=== PATIENT | female | born 1990 | race Asian ===

== ENCOUNTER 2023-07-11 10:24 | Outpatient (CLI) | payer MEDICAID, SELFPAY ==
[2023-07-11 10:48] LABS: Basophils Percent Auto 0.4 % (0.2-1.2); Eosinophils Absolute Auto 0.1 K/mm3 (0-0.3); Eosinophils Percent Auto 1.1 % (0-4.4); Hematocrit 35.6 % (37.0-47.0); Hemoglobin 12.4 g/dL (12.0-15.0); Immature Granulocyte Absolute 0.05 K/mm3 (0.00-0.031); Immature Granulocyte Percent A 0.5 % (0-0.5); Lymphocytes Absolute Auto 2.24 K/mm3 (0.9-3.2); Lymphocytes Percent Auto 20.9 % (18.3-44.2); Mean Corpuscular HGB Conc 34.8 g/dl (32-36); Mean Corpuscular Hemoglobin 30.5 pg (26-34); Mean Corpuscular Volume 87.5 fl (80-100); Mean Platelet Volume 10.1 fl (7.4-10.4); Monocytes Absolute Auto 0.6 K/mm3 (0.1-0.6); Monocytes Percent Auto 5.1 % (2.6-8.5); Neutrophils Absolute Auto 7.7 K/mm3 (1.3-6.7); Platelet Count Result 199 k/mm3 (150-375); Red Blood Count 4.07 M/mm3 (4.2-5.4); Red Cell Distribution Width 13.4 % (11.5-14.5); White Blood Count 10.7 K/mm3 (4.5-10.0)
[2023-07-11 11:38] LABS: HIV 1/2 Ab P24 Ag Result Negative (Negative)
[2023-07-11 11:54] LABS: Hepatitis B Surface Antigen Negative (Negative); Rubella IgG Antibody 8.7 IU/ML
[2023-07-13 12:30] LABS: Rapid Plasma Reagin Non-Reactive (NonReactive)
== END 2023-07-11 10:25 | disposition home or self-care (01) ==
PROVIDERS: PCP Student in an Organized Health Care Education/Training Program; Visit Provider Student in an Organized Health Care Education/Training Program
DX: N94.89 Other specified conditions associated with female genital organs and menstrual cycle (principal)
CPT/HCPCS: 36415; 84702; 85025; 86592; 86644; 86703; 86747; 86762; 86787; 86850; 86900; 86901; 87086; 87340; G0432

== ENCOUNTER 2023-10-04 10:00 | Outpatient (CLI) | payer OTHER, SELFPAY ==
--- NOTE | ~2023-10-04 | US_ITS ---
EXAMINATION: US OB /maternal detail DATE: 10/04/2023 11:10 INDICATION: Encounter for supervision of normal . TECHNIQUE: Real-time ultrasound of the pelvis was performed. COMPARISON: None. FINDINGS: There is a single living fetus in breech presentation. The placenta is anterior. The cervical length is 3.4 cm on transabdominal images, which is normal. heart rate is 149 beats per minute (bpm). The amniotic fluid index is 12.1 cm, which is normal. The following biometric data were obtained: Biparietal diameter (BPD): 6.0 cm; head circumference (HC): 21.6 cm; abdominal circumference (AC): 20 .0 cm; femur length (FL): 4.4 cm. These measurements are concordant. Estimated weight is 697 g +/- 105 g, which correlates with the 55th percentile when 01/23/24 is used as estimated date of delivery. As single measurements, these parameters are each equal to the following estimated gestational ages: BPD: 24 weeks 3 days. HC: 23 weeks 5 days. AC: 24 weeks 4 days. FL: 24 weeks 3 days. estimated gestational age based solely on measurements from this exam is 24 weeks 2 days +/- 1 weeks 5 days. The cerebral ventricles, cerebellum, cisterna magna, lip, and visualized portions of the spine are no rmal. The heart is normal. The diaphragm, stomach, kidneys, and bladder are normal. There are two umb ilical arteries to yield a 3-vessel cord. The cord insertion is normal. IMPRESSION: 1. Single living fetus in breech presentation. 2. Estimated weight is 697 g +/- 105 g, which correlates with the 55th percentile when 4 is used as estimated date of delivery. 3. Normal anatomic survey. Reviewed, dictated and finalized at location A. IMPRESSION: 1. Single living fetus in breech presentation. 2. Estimated weight is 697 g +/- 105 g, which correlates with the 55th p ercentile when 01/23/24 is used as estimated date of delivery. 3. Normal anatomic survey.
== END 2023-10-04 10:01 | disposition home or self-care (01) ==
LOC: ANHIMG 10:02
PROVIDERS: PCP Student in an Organized Health Care Education/Training Program; Visit Provider Student in an Organized Health Care Education/Training Program
DX: Z34.92 Encounter for supervision of normal pregnancy, unspecified, second trimester (principal); Z3A.24 24 weeks gestation of pregnancy
CPT/HCPCS: 76805

== ENCOUNTER 2023-11-02 09:56 | Outpatient (CLI) | payer OTHER, SELFPAY ==
[2023-11-02 11:39] LABS: Glucose 1 Hour PP 50gm Dose 146 mg/dL
[2023-11-02 11:45] LABS: Hematocrit 33.7 % (37.0-47.0); Hemoglobin 11.5 g/dL (12.0-15.0); Mean Corpuscular HGB Conc 34.1 g/dl (32-36); Mean Corpuscular Hemoglobin 31.3 pg (26-34); Mean Corpuscular Volume 91.6 fl (80-100); Mean Platelet Volume 11.1 fl (7.4-10.4); Platelet Count Result 211 k/mm3 (150-375); Red Blood Count 3.68 M/mm3 (4.2-5.4); Red Cell Distribution Width 13.2 % (11.5-14.5); White Blood Count 12.2 K/mm3 (4.5-10.0)
[2023-11-02 12:17] LABS: HIV 1/2 Ab P24 Ag Result Negative (Negative)
[2023-11-03 10:49] LABS: Rapid Plasma Reagin Non-Reactive (NonReactive)
== END 2023-11-02 09:57 | disposition home or self-care (01) ==
LOC: ANHLAB 09:56
PROVIDERS: PCP Student in an Organized Health Care Education/Training Program; Visit Provider Student in an Organized Health Care Education/Training Program
DX: Z34.90 Encounter for supervision of normal pregnancy, unspecified, unspecified trimester (principal)
CPT/HCPCS: 36415; 82947; 85027; 86592; 86703; G0432

== ENCOUNTER 2023-11-10 08:04 | Outpatient (CLI) | payer OTHER, SELFPAY ==
[2023-11-10 08:28] LABS: Glucose Fasting Gestational 76 mg/dL (>/=95)
[2023-11-10 09:58] LABS: Glucose 1 Hour Gest 148 mg/dL (>/=180)
[2023-11-10 10:53] LABS: Glucose 2 Hour Gest 119 mg/dL (>/= 155)
[2023-11-10 11:37] LABS: Glucose 3 Hour Gest 111 mg/dL (>/=140)
== END 2023-11-10 08:05 | disposition home or self-care (01) ==
LOC: ANHLAB 08:06
PROVIDERS: Visit Provider Student in an Organized Health Care Education/Training Program
DX: Z34.90 Encounter for supervision of normal pregnancy, unspecified, unspecified trimester (principal); Z3A.00 Weeks of gestation of pregnancy not specified
CPT/HCPCS: 36415; 82951; 82952

== ENCOUNTER 2024-01-16 08:55 | Outpatient (CLI) | payer OTHER, SELFPAY ==
[2024-01-16 09:16] LABS: Hematocrit 36.3 % (37.0-47.0); Hemoglobin 12.1 g/dL (12.0-15.0); Mean Corpuscular HGB Conc 33.3 g/dl (32-36); Mean Corpuscular Hemoglobin 29.7 pg (26-34); Mean Corpuscular Volume 89.2 fl (80-100); Mean Platelet Volume 10.7 fl (7.4-10.4); Platelet Count Result 188 k/mm3 (150-375); Red Blood Count 4.07 M/mm3 (4.2-5.4); Red Cell Distribution Width 14.3 % (11.5-14.5); White Blood Count 10.7 K/mm3 (4.5-10.0)
[2024-01-16 10:16] LABS: HIV 1/2 Ab P24 Ag Result Negative (Negative)
[2024-01-16 17:18] LABS: Rapid Plasma Reagin Non-Reactive (NonReactive)
== END 2024-01-16 08:56 | disposition home or self-care (01) ==
LOC: ANHLAB 08:57
PROVIDERS: Visit Provider Student in an Organized Health Care Education/Training Program
DX: Z01.818 Encounter for other preprocedural examination (principal)
CPT/HCPCS: 36415; 85027; 86592; 86703; 86850; 86900; 86901; G0432

== ENCOUNTER 2024-01-17 05:14 | Inpatient (IN) | payer OTHER, SELFPAY ==
--- NOTE | 2024-01-16 16:16 | PM.IMHP ---
H&P: HPI History of Present Illness Date/Time: 01/16/24 16:16 Chief Complaint: intrauterine at term prior advanced maternal age desires permanent sterilization Narrative: 33 yo G3Pw who presents for repeat . Pt also desires permanent sterilization at the time of . Review of Systems Cardiovascular: Cardiovascular: Denies chest pain, Denies leg edema, Denies palpitations, Denies dyspnea and Denies dyspnea on exertion Respiratory: Respiratory: Denies cough, Denies dyspnea and Denies dyspnea on exertion Gastrointestinal: Gastrointestinal: Denies abdominal pain, Denies constipation, Denies diarrhea, Denies nausea and Denies vomiting Genitourinary: Genitourinary: Denies hematuria, Denies urinary frequency, Denies dysuria, Denies pelvic pain, Denies urinary incontinence and Denies vaginal discharge Neurologic: Reports system reviewed and no additional complaints, except as documented Psychiatric: Psychiatric: Reports no additional psychiatric complaints Endocrine: Endocrine: Denies palpitations PMFSH Past Medical History Medical History Suppression of menses Surgical History Surgical History History of delivery 1 Family History Family History Grandparent Diabetes mellitus Social History Social History Smoking status: Never smoker Alcohol intake: former Substance use: never Do You Feel Safe in your Home?: Yes Lack of Transportation: No Lack of Food: Never True Current Housing: I Have Housing Concerned About Future Housing: No Difficulty Paying Gas/Electric Bills: No Difficulty Paying for Meds: No Currently Unemployed: No Education: High School Diploma/GED Difficulty w/ Childcare or Family Care: No Living arrangements: with family Gender identity (if verbalized by the patient): Female Sexual Orientation (if Verbalized by the Patient): Straight or Heterosexual Spiritual care concerns: No Meds Home Medications and Allergies Home Medications Medication Instructions Recorded Confirmed Type ondansetron HCl 4 mg tablet 4 mg PO Q6H PRN nausea and 07/12/23 01/11/24 Rx vomiting #30 tabs aspirin 81 mg capsule 162 mg PO DAILY #60 caps 09/02/23 01/11/24 Rx vits no.126-ferrous fum 1 tablet PO DAILY 09/02/23 01/11/24 History 28 mg iron-folic acid 800 mcg tablet (Classic ) Allergies Allergy/AdvReac Type Severity Reaction Status Date / Time No Known Allergies Allergy Verified 01/11/24 10:02 Exam Const: General: no acute distress Eyes: EOM: EOMs intact bilaterally Neck: Neck: supple Thyroid: thyroid normal Chest: Breast/axilla inspection: normal inspection of the breasts Breast/axilla palpation: normal palpation of the breasts, normal palpation of the axillae and no axillary lymphadenopathy Resp: Effort & Inspection: normal respiratory effort Auscultation: clear to auscultation bilaterally Cardio: Rate: regular rate Rhythm: regular rhythm GI: Inspection: non-distended and other (Gravid) GI Palp: Yes Soft to palpation, No Tenderness to palpation present (GI) and No Guarding due to palpation present (GI) Auscultation: normal bowel sounds : Speculum Exam - Vagina: No vaginal bleeding OB/external & speculum: external exam normal; No vaginal bleeding Skin: General skin exam: normal color and no rashes or lesions noted Neuro: Cognition (Neuro): normal cognition Speech: normal speech Extrem: General: normal to inspection Psych: Mental Status: mental status grossly normal Affect: normal affect Assessment and Plan Assessment and plan (1) : Code(s): Z34.90 - Encounter for supervision of normal , unspecified, unspecified trimester Status: Acute Assessment and Plan: - AMA; NIPT LR Male - H/o - repeat at 39w - H/o GHTN- has been on low dose aspirin uncomplicated thus far plan for repeat risks, benefits, alternatives discussed (2) History of delivery: Code(s): Z98.891 - History of uterine scar from previous surgery Status: Acute (3) Encounter for sterilization: Code(s): Z30.2 - Encounter for sterilization Status: Acute Assessment and Plan: plan for bilateral salpingectomy for tubal ligation at the time of risks, benefits, alternatives discussed
[2024-01-17] VITALS (66 sets, daily range): BP systolic 94–140; BP diastolic 38–94; PULSE 51–139; RESP 12–18; TEMP 36.3–36.9; O2SAT 97–100; BMI 28.9; BMI 29.5
[2024-01-17] MEDS: LACTATED RINGERS 1,000 ML 125 ML IV CONT ×2 (05:42→06:29)
[2024-01-17] MEDS: ACETAMINOPHEN 500 MG TABLET 1000 MG PO (05:43)
--- NOTE | 2024-01-17 06:20 | LDADM ---
This patient, Henry Bashir, was admitted to Labor/Delivery/Recovery 120 on 01/17/24 at 05:14. Plans for labor, pain management and were discussed with patient. Patient/family oriented to hospital policies and general routines including ID bracelet, bed and alarms, visiting hours, pain management, procedures, bathroom and other care routines, personal items, smoking policy, room service/diet and guest tray routines, security routines, and visiting hours. Patient/Family are encouraged to report perceived risks to care and to ask questions if they do not understand what they are told or what they should do. See OBIX for further documentation.
[2024-01-17] MEDS: ONDANSETRON INJ 4 MG/2 ML VIAL IV PUSH (06:30)
[2024-01-17] MEDS: ceFAZolin 2 GM/D5W 50 ML 2 GM/50 ML BAG IVPB (06:50)
[2024-01-17] MEDS: FAMOTIDINE 20 MG/2 ML VIAL IV PUSH (06:52)
--- NOTE | 2024-01-17 07:13 | WPDHPUPDATE1 ---
History and Physical Update Update Date/Time: 01/17/24 07:13 History and Physical has been reviewed, including an updated exam of the patient. There are NO changes in the patient's condition. Risks, benefits, and alternatives have been discussed and questions answered. Patient agrees to proceed with procedure.
--- NOTE | 2024-01-17 07:16 | WPDHPUPDATE1 ---
History and Physical Update Update Date/Time: 01/17/24 07:16 History and Physical has been reviewed, including an updated exam of the patient. There are NO changes in the patient's condition. Risks, benefits, and alternatives have been discussed and questions answered. Patient agrees to proceed with procedure.
--- NOTE | 2024-01-17 07:20 | P.PNAN_ITS ---
Anes - Initial Pre Proc Eval Procedure: Operation Date: 01/17/24 07:30 Proposed Procedures p Repeat Section with Tubal Ligation - Jaskaran Forbes MD Date/Time: 01/17/24 07:20 Surgeon: Jaskaran Forbes MD Pre Op Diagnosis: C/S Patient Data Age: 34 Gender: F Height: 1.5 m Weight: 66.36 kg Last Vital Signs Pulse 77 01/17/24 06:30 BP 129/83 01/17/24 06:30 Pulse Ox 99 01/17/24 06:40 O2 Del Method Room Air 01/17/24 05:14 Allergies Allergy/AdvReac Type Severity Reaction Status Date / Time No Known Allergies Allergy Verified 01/11/24 10:02 Home Medications Medication Instructions Recorded Confirmed Type ondansetron HCl 4 mg tablet 4 mg PO Q6H PRN nausea and 07/12/23 01/11/24 Rx vomiting #30 tabs aspirin 81 mg capsule 162 mg PO DAILY #60 caps 09/02/23 01/11/24 Rx vits no.126-ferrous fum 1 tablet PO DAILY 09/02/23 01/11/24 History 28 mg iron-folic acid 800 mcg tablet (Classic ) Patient hx anesthesia problems: none Family hx anesthesia problems: none Results Review: All pre-operative results and documents have been reviewed as part of the pre- operative evaluation. [facility] Past Medical History Medical History Suppression of menses Surgical History Surgical History History of delivery 1 Family History Family History Grandparent Diabetes mellitus Social History Social History Smoking status: Never smoker Second hand tobacco smoke exposure: Yes Alcohol intake: former Substance use: never Do You Feel Safe in your Home?: Yes Lack of Transportation: No Lack of Food: Never True Current Housing: I Have Housing Concerned About Future Housing: No Difficulty Paying Gas/Electric Bills: No Difficulty Paying for Meds: No Currently Unemployed: No Education: High School Diploma/GED Difficulty w/ Childcare or Family Care: No Living arrangements: with family Gender identity (if verbalized by the patient): Female Sexual Orientation (if Verbalized by the Patient): Straight or Heterosexual Spiritual care concerns: No Anes - Eval Final PreProcedure Day of Procedure 01/17/24 07:20 Patient weight: overweight Heart: regular rate and rhythm Lungs: clear to auscultation Airway: Mallampati scale class II Neurological: alert and oriented Last oral intake: >/= 8 hours ASA classification: II Emergent: no Anesthetic plan: proceed Anesthesia type and monitoring: regional spinal and standard monitoring Results Review: All pre-operative results and documents have been reviewed as part of the pre- operative evaluation. Prev C section under epidural anesthesia. Plts 188. Informed Consent: The patient's anesthetic plan and its attendant risks and benefits were discussed with the patient/family/POA. Questions were solicited and answers provided to the satisfaction of the patient/family/POA.
--- NOTE | 2024-01-17 08:30 | W.PM.OBCSD ---
OB - Delivery Note Procedure Delivery date: 01/17/24 Pre-op diagnosis: Previous Delivery Post-op Diagnosis: Same Induction method: None Delivery monitor: External FHT Prior to decision for section, ACOG/SMFM labor guidelines were considered and discussed with the patient and staff. Decision made to proceed with the section.: Yes Procedure Performed: Repeat (midline vertical skin incision ) Secondary branch: low cervical, transverse and Tubal Ligation Surgeon: Jaskaran Forbes MD Anesthesia type: Spinal Description of Procedure/Findings: The patient was taken to the operating room where epidural anesthesia was found to be adequate. She was then prepped and draped in the usual sterile fashion in the dorsal supine position with a leftward tilt. A midline vertical skin incision over the previous incision and was then made with the scalpel and carried through to the underlying layer of fascia. The fascia was then incised in the midline and the incision extended vertically with the Nascimento scissors. The rectus muscles were then in the midline, and the peritoneum identified, tented up, and entered sharply with the Metzenbaum scissors. The peritoneal incision was then extended superiorly and inferiorly with good visualization of the bladder. An Tesfaye ring retractor was then placed for better visualization. The uterus was inspected for malrotation. The lower uterine segment incised in a low, transverse fashion with the scalpel. The uterine incision was then extended laterally bluntly. The infant?s head delivered atraumatically. The remainder of the infant was delivered atraumatically. The cord was clamped and cut. The was handed off to the waiting pediatricians (staff). Cord gasses were sent. The placenta was then removed manually, the uterus exteriorized, and cleared of all clots and debris. The uterine incision was repaired with 0 monocryl in a running fashion. Both fallopian tubes were identified and followed out to the fimbriae bilaterally. The left fallopian tube was grasped with Babcocks and elevated to identify an avascular space in the mesosalpinx. The fallopian tube was then ligated along the inferior mesosalpinx with the ligasure device. The fallopian tube was transected at the uterine corpus. The same procedure was repeated for the right fallopian tube. The uterus was returned to the abdomen. The uterus was then reinspected to ensure hemostasis as were all subfascial tissues. The fascia was reapproximated with 0-PDS looped sutuer in a running fashion. The subcutaneous layer was copiously irrigated to clear any clots or debris. The subcutaneous tissue was reapproximated using 3-0 Vicryl in series of interrupted sutures. The skin was closed with jarek. The patient tolerated the procedure well. Sponge, lap and needle counts were correct times three. The patient was taken to the recovery room in stable condition. Specimen: No Estimated Blood Loss: 220 Drains: No Packing: No Pathology: Yes (bilateral fallopian tubes) Complications: No immediate complications Condition: Stable Disposition: [facility] [place] Baby Date of : 01/17/24 Gestational Age by Date: 39 Infant gender: Female presentation: vertex Placenta delivery description: Manual Removal
--- NOTE | 2024-01-17 10:40 | PC.NURSE ---
Addendum entered by Venus Lim RN 01/17/24 11:37: No new orders from Dr Forbes at time of call. Original Note: Spoke with Dr Forbes over the phone. Reported most recent fundal check and QBL of 410 with large clots. First call attempted at 1029.
--- NOTE | 2024-01-17 11:22 | OBPPTRN ---
Patient transferred to post room #286 via stretcher. Support person present. Oriented to unit, room, information board, rooming in, admission packet and security measures. Patient verbalizes understanding.
[2024-01-17] MEDS: ACETAMINOPHEN 325 MG TABLET 650 MG PO ×2 (12:51→19:10)
[2024-01-17] MEDS: MULTIVIT/MIN/PREN/FOL AC/IRON TABLET 1 TAB PO (12:52)
[2024-01-17] MEDS: SIMETHICONE 80 MG TAB.CHEW PO ×2 (12:52→17:47)
[2024-01-17] MEDS: DOCUSATE SODIUM 100 MG CAPSULE PO ×2 (12:52→17:47)
[2024-01-17] MEDS: KETOROLAC 15 MG/ML VIAL (*BKC) IV PUSH ×2 (12:52→19:10)
[2024-01-17] MEDS: DEXTROSE 5%/0.45% SOD CHL 1,000 ML 125 ML IV CONT (14:25)
[2024-01-18] MEDS: KETOROLAC 15 MG/ML VIAL (*BKC) IV PUSH ×2 (01:50→08:30)
[2024-01-18] MEDS: ACETAMINOPHEN 325 MG TABLET 650 MG PO ×4 (01:50→21:08)
[2024-01-18 03:55] VITALS: BP 113/66; PULSE 80; RESP 16; TEMP 37; O2SAT 99
[2024-01-18 04:18] LABS: Basophils Percent Auto 0.2 % (0.2-1.2); Eosinophils Absolute Auto 0.1 K/mm3 (0-0.3); Hematocrit 22.6 % (37.0-47.0); Hemoglobin 7.9 g/dL (12.0-15.0); Immature Granulocyte Percent A 0.8 % (0-0.5); Lymphocytes Absolute Auto 1.65 K/mm3 (0.9-3.2); Lymphocytes Percent Auto 13.7 % (18.3-44.2); Mean Corpuscular Hemoglobin 30.9 pg (26-34); Mean Corpuscular Volume 88.3 fl (80-100); Mean Platelet Volume 11.1 fl (7.4-10.4); Monocytes Absolute Auto 0.8 K/mm3 (0.1-0.6); Monocytes Percent Auto 6.2 % (2.6-8.5); Neutrophils Absolute Auto 9.4 K/mm3 (1.3-6.7); Neutrophils Percent Auto 78.1 % (45.5-73.1); Platelet Count Result 129 k/mm3 (150-375); Red Blood Count 2.56 M/mm3 (4.2-5.4); Red Cell Distribution Width 14.4 % (11.5-14.5)
[2024-01-18 07:40] VITALS: BP 128/77; PULSE 74; RESP 18; TEMP 36.8; O2SAT 99
[2024-01-18] MEDS: POLYSACCHARIDE IRON COMPLEX 150 MG CAPSULE PO ×2 (08:30→17:03)
[2024-01-18] MEDS: MULTIVIT/MIN/PREN/FOL AC/IRON TABLET 1 TAB PO (08:30)
[2024-01-18] MEDS: SIMETHICONE 80 MG TAB.CHEW PO ×3 (08:30→17:03)
[2024-01-18] MEDS: IBUPROFEN 600 MG TABLET PO ×2 (14:55→21:08)
--- NOTE | 2024-01-18 15:24 | PM.OBPNVD ---
OB - PN: Subj Subjective Date/time seen: 01/18/24 15:24 Patient comments: no complaints, pain well controlled, tolerating diet and flatus present OB - PN: Obj Data Labs 01/18/24 03:52 Labs: Laboratory Results - last 24 hr 01/18/24 03:52 WBC 12.0 H RBC 2.56 L Hgb 7.9 L D Hct 22.6 L MCV 88.3 MCH 30.9 MCHC 35.0 RDW 14.4 Plt Count 129 L MPV 11.1 H Immature Gran % (Auto) 0.8 H Neut % (Auto) 78.1 H Lymph % (Auto) 13.7 L [place] % (Auto) 6.2 Eos % (Auto) 1.0 Baso % (Auto) 0.2 Lymph # (Auto) 1.65 [place] # (Auto) 0.8 H Eos # (Auto) 0.1 Baso # (Auto) 0.0 Abs Immat Gran (auto) 0.10 H Absolute Neuts (auto) 9.4 H Absolute Nucleated RBC 0.000 Nucleated RBC % 0.0 OB - PN A/P Plan day: 1 Plan: routine care Comments: patient doing well H/H 7.9/22 H/H drop was more than anticipated given QBL. abdomen is non-tender, VSS. will repeat H/H tomorrow afebrile, VSS incision C/D/I jones removed, voiding spontaneously continue routine post op care Time Spent With Patient Time: Total time spent is greater than 50% in coordination of care (as documented) at patient's floor/unit and/or counseling patient: Time with patient: less than 15 minutes Review of Systems Constitutional: Constitutional: Reports no additional constitutional complaints Cardiovascular: Cardiovascular: Reports no additional cardiovascular complaints Respiratory: Respiratory: Reports no additional respiratory complaints Gastrointestinal: Gastrointestinal: Reports no additional gastrointestinal complaints Genitourinary: Genitourinary: Reports no additional female genitourinary complaints Exam Const: General: comfortable and no acute distress Resp: Effort & Inspection: normal respiratory effort Auscultation: clear to auscultation bilaterally Cardio: Rate: regular rate GI: GI Palp: Yes Soft to palpation, Yes Tenderness to palpation present (GI) (around incision ) and No Guarding due to palpation present (GI) Auscultation: normal bowel sounds Other: incision C/D/I, covered with Dermabond Psych: Appearance: grossly normal Mental Status: mental status grossly normal Affect: normal affect
--- NOTE | 2024-01-18 16:57 | WPDANLDPN2 ---
Anes-Prog Note L&D Date/Time: 01/18/24 16:57 Comfortable throughout: section Neuraxial method: spinal Epidural/Spinal procedure site: clean & non-tender Neuro status: Neuro function grossly intact. Cardiovascular status: normal Respiratory status: normal Airway patency: baseline Mental status: baseline Post-Op hydration status: normal Vital Signs: Last Vital Signs Temp 98.2 F 01/18/24 07:40 Pulse 74 01/18/24 07:40 Resp 18 01/18/24 07:40 BP 128/77 01/18/24 07:40 Pulse Ox 99 01/18/24 07:40 O2 Del Method Room Air 01/17/24 19:30 Pain score (VAS): 0/10 I/O: Intake & Output 01/18/24 01/18/24 01/18/24 07:59 15:59 23:59 Intake Total 1200 Output Total 785 Balance 415 Post-procedural complaints: none Patient feedback: Patient satisfied with anesthetic care.
--- NOTE | 2024-01-18 16:57 | WPDANLDNPN2 ---
Anes-Prog Note L&D-Neuraxial Date/Time: 01/18/24 16:57 Neuraxial medications: intrathecal PF morphine Opiod-related complaints: none Patient feedback: Patient satisfied with post-operative pain management.
[2024-01-18] MEDS: DOCUSATE SODIUM 100 MG CAPSULE PO (17:03)
[2024-01-18] MEDS: LIDOCAINE 5% PATCH 1 PATCH TRANSDERM (19:46)
[2024-01-18 20:00] VITALS: BP 131/57; PULSE 84; RESP 20; TEMP 37.1; O2SAT 99
[2024-01-18] MEDS: HYDROcodone/acetaminophen (*CRX) 5-325 MG TABLET 1 TAB PO (21:08)
[2024-01-19] MEDS: ACETAMINOPHEN 325 MG TABLET 650 MG PO ×2 (03:13→10:51)
[2024-01-19] MEDS: IBUPROFEN 600 MG TABLET PO ×2 (03:13→10:51)
[2024-01-19 05:06] LABS: Hematocrit 24.2 % (37.0-47.0); Mean Corpuscular HGB Conc 33.1 g/dl (32-36); Mean Corpuscular Hemoglobin 29.6 pg (26-34); Mean Corpuscular Volume 89.6 fl (80-100); Mean Platelet Volume 11.5 fl (7.4-10.4); Platelet Count Result 151 k/mm3 (150-375); Red Cell Distribution Width 14.6 % (11.5-14.5); White Blood Count 11.7 K/mm3 (4.5-10.0)
[2024-01-19 07:50] VITALS: BP 110/55; PULSE 70; RESP 16; TEMP 36.6; O2SAT 100
[2024-01-19 08:00] VITALS: PULSE 70; RESP 16; O2SAT 100
--- NOTE | 2024-01-19 10:32 | P.DS_ITS ---
DS: Admitting Diagnosis Discharge Date 01/19/24 Admitting Diagnosis intrauterine at term previous DS: Discharge Diagnosis Discharge Diagnosis (1) delivery delivered: Code(s): O82 - Encounter for delivery without indication Status: Acute OB - DS: Summary OB Procedures : None OB Procedures Intrapartum: OB Procedures: : None Peripartum Data Infant Delivery Method: Section Procedures: Procedures Operation Date: 01/17/24 07:30 Actual Procedure Side Surgeon p Repeat Section with Tubal Ligation Bilateral Jaskaran Forbes MD complications: none Status at Discharge Functional status at discharge: independent ambulation Overall status at discharge: patient is progressing back to baseline Time Spent with Patient Time attestation: Total time spent providing and/or coordinating discharge services: Time spent: Less than 30 minutes Exam Const: General: comfortable and no acute distress Resp: Effort & Inspection: normal respiratory effort Auscultation: clear to auscultation bilaterally Cardio: Rate: regular rate GI: Inspection: non-distended GI Palp: Yes Soft to palpation, No Firmness t o palpation present (GI), Yes Tenderness to palpation present (GI) (mild tenderness over incision ) and No Guarding due to palpation present (GI) Auscultation: normal bowel sounds Psych: Appearance: grossly normal Mental Status: mental status grossly normal DS: Data Data Completed and Pending Completed studies during hospitalization: Pending at discharge 01/17/24 08:45 Surgical [PTH] Routine Labs on day of discharge: Labs from last 24 hours 01/19/24 03:17 WBC 11.7 H RBC 2.70 L Hgb 8.0 L Hct 24.2 L MCV 89.6 MCH 29.6 MCHC 33.1 RDW 14.6 H Plt Count 151 MPV 11.5 H Discharge Plan Discharge Discharging Clinician: Jaskaran Forbes Patient Disposition: Home, Self-Care Activity: as tolerated and pelvic rest Diet: regular Patient Instructions: Antibiotic Form, (DC) Stand Alone Forms: General Discharge Information Follow-up/Referrals: Jaskaran Forbes MD [Physician] - 1 Week (Staple removal) Discharge Medications: New oxycodone-acetaminophen 5-325 mg tablet 1 tablet PO Q6H PRN (Reason: pain) Qty: 28 0RF ibuprofen 600 mg tablet 600 mg PO Q6H PRN (Reason: pain) Qty: 30 0RF polysaccharide iron complex 150 mg iron Capsule 150 mg PO BIDWM Qty: 90 0RF sennosides-docusate sodium [Senna with Docusate Sodium] 8.6-50 mg tablet 1 tab-cap PO HS Qty: 30 0RF Continued Classic 28 mg iron- 800 mcg tablet 1 tablet PO DAILY ondansetron HCl 4 mg tablet 4 mg PO Q6H PRN (Reason: nausea and vomiting) Qty: 30 1RF aspirin 81 mg capsule 162 mg PO DAILY Qty: 60 3RF Date of admission: 01/17/24 05:14 Primary Care Provider: PHYSICIAN,SPORTS RECRUITER Admitting Provider: Jaskaran Forbes Attending physician on admission: Jaskaran Forbes Condition: Stable
--- NOTE | 2024-01-19 10:44 | PC.NURSE ---
Staple removal kit and transportation list given to patient at time of discharge.
[2024-01-19] MEDS: DOCUSATE SODIUM 100 MG CAPSULE PO (10:51)
[2024-01-19] MEDS: SIMETHICONE 80 MG TAB.CHEW PO ×2 (10:51→12:25)
[2024-01-19] MEDS: POLYSACCHARIDE IRON COMPLEX 150 MG CAPSULE PO (10:52)
[2024-01-19] MEDS: INFLUENZA TRIVALENT VACCINE 45 MCG/0.5 ML SYRINGE IM (12:25)
[2024-01-19] MEDS: MEASLES,MUMPS,RUBELLA VACCINE 0.5 ML VIAL SUB-Q (12:27)
--- NOTE | 2024-01-19 13:30 | PC.NURSE ---
Patient was given the opportunity to view the discharge video Mother & Baby Care, The First Two Weeks and to ask questions. Patient declined viewing the video and has been given the mother/baby guide for home reference.
[2024-01-20 16:09] VITALS: BP 128/82; PULSE 76; RESP 18; TEMP 36.5; O2SAT 100
== END 2024-01-19 13:45 | disposition home or self-care (01) | DRG 539 ==
LOC: ANHLDR 05:15 → ANHOB2 11:10
PROVIDERS: Admitting Provider Student in an Organized Health Care Education/Training Program; Visit Provider Student in an Organized Health Care Education/Training Program
PROC: 10D00Z1 Extraction of Products of Conception, Low, Open Approach (ICD-10-PCS; CPT 59514; principal; 2024-01-17 07:30)
DX: O34.211 Maternal care for low transverse scar from previous cesarean delivery (principal); Z37.0 Single live birth; Z3A.39 39 weeks gestation of pregnancy; Z30.2 Encounter for sterilization; Z23 Encounter for immunization
CPT/HCPCS: 36415; 85025; 85027; 86592; 86703; 86850; 86900; 86901; 88302; 90471; 90656; 90710; A9270; G0008; G0432; J0690; J1885; J2274; J2405; J2590; J7120